=== PATIENT | male | born 1980 | race Caucasian/White ===

== ENCOUNTER 2016-12-19 12:34 | Emergency (ER) | payer OTHER ==
[2016-12-19 12:44] VITALS: BP 144/82
--- NOTE | 2016-12-19 13:05 | ED Physician Documentation ---
PD HPI HEAD INJURY - Stated complaint Stated Complaint: HEAD INJ - Chief complaint Chief Complaint: General - History obtained from History obtained from: Patient - History of Present Illness Mechanism of head injury: Blow (struck in back of head by metal object at work; was wearing hardhat. Had some headache and left neck pain develop 5-10 minutes after the injury. No LOC, no nausea, no visual changes. Sent to ED for evaluation at direction of his boss.) Where head injury occurred: Work Timing - onset: How many hours ago (1) Location of injury: Back Quality of pain: No: Pain, Throbbing, Aching Associated symptoms: Neck pain (left lateral muscles.). No: LOC, AMS (briefly dazed for few seconds only.), Nausea / vomiting Symptoms improve with: Rest Symptoms worsen with: Palpation, Movement Similar symptoms before: Has not had sx before Recently seen: Not recently seen Review of Systems Constitutional: denies: Fever, Chills Neurologic: denies: Focal weakness, Numbness, Confused, Altered mental status, Headache Psychiatric: denies: Depressed, Anxiety, Insomnia PD PAST MEDICAL HISTORY - Past Medical History Past Medical History: No - Past Surgical History Past Surgical History: Yes General: Other - Present Medications Home Medications: Ambulatory Orders Medication Instructions Recorded Confirmed No Known Home Medications [No 12/19/16 12/19/16 Known Home Medications] - Allergies Allergies/Adverse Reactions: Allergies Allergy/AdvReac Type Severity Reaction Status Date / Time No Known Drug Allergies Allergy Verified 12/19/16 12:44 - Social History Does the pt smoke?: No Smoking Status: Never smoker Does the pt drink ETOH?: Yes ETOH Use: Wine Does the pt have substance abuse?: No - Immunizations Immunizations are current?: Yes - POLST Patient has POLST: No PD ED PE NORMAL - Vitals Vital signs reviewed: Yes - General General: Well developed/nourished, Other (calm when first see him, but very anxious and startes crying when I am close and wanting to touch or deflate the blisters.) - HEENT HEENT: Atraumatic (not tender in head at all. ), PERRL, EOMI, Moist mucous membranes, Pharynx benign - Neck Neck: Supple, no meningeal sign, No bony TTP (has some tenderness left lateral neck muscles. No vertebra/midline tenderness. ), No adenopathy - Derm Derm: Normal color, Warm and dry, Other (uniform redness on whole of back. Top of sunburn at shouldrs with some small blisterings. No purulence. right shoulder has one unroofed. ) - Neuro Neuro: Alert and oriented X 3, parimutuel clerk 2-12 intact, No motor deficit, No sensory deficit, Normal speech, Other Results - Vitals Vitals: Vital Signs - 24 hr 12/19/16 12:37 Temperature 37.2 C Heart Rate 70 Respiratory 18 Rate Blood Pressure 144/82 H O2 Saturation 98 Oxygen O2 Source Room air PD MEDICAL DECISION MAKING - ED course Complexity details: reviewed results, considered differential, d/w patient Departure - Departure Disposition: 01 Home, Self Care Clinical Impression: Head contusion Qualifiers: Encounter type: initial encounter Contusion of head detail: scalp Qualified Code(s): S00.03XA - Contusion of scalp, initial encounter Neck muscle strain Qualifiers: Encounter type: initial encounter Qualified Code(s): S16.1XXA - Strain of muscle, fascia and tendon at neck level, initial encounter Clinical Impression: (Ruled Out): Mild concussion Condition: Stable Record reviewed to determine appropriate education?: Yes Instructions: ED Contusion Scalp, ED Sprain Strain Neck Comments: Tylenol or ibuprofen/naproxen as needed for pains. Your neck will be sore for few days likely. Recheck if any concussive symptoms develop. Otherwise okay to resume work. Forms: Activity restrictions Discharge Date/Time: 12/19/16 13:20
== END 2016-12-19 13:20 | disposition home or self-care (01) ==
LOC: ED 12:34
DX: S00.03XA Contusion of scalp, initial encounter (principal); S16.1XXA Strain of muscle, fascia and tendon at neck level, initial encounter; W22.8XXA Striking against or struck by other objects, initial encounter; Y99.0 Civilian activity done for income or pay
CPT/HCPCS: 1040M; 99282; 99283